=== PATIENT | female | born 2000 | race Caucasian/White ===

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

== ENCOUNTER 2018-01-12 17:54 | Emergency (ER) | payer MEDICAID ==
[2018-01-12 17:58] VITALS: BP 141/85; BMI 34.0
[2018-01-12 19:00] LABS: BILIRUBIN,URINE NEGATIVE (NEGATIVE); BLOOD/HEMOGLOBIN,URINE NEGATIVE (NEGATIVE); GLUCOSE, URINE NEGATIVE (NEGATIVE); KETONES,URINE NEGATIVE (NEGATIVE); LEUKOCYTE ESTERASE ,URINE 1+ (NEGATIVE); NITRITES,URINE NEGATIVE (NEGATIVE); PROTEIN,URINE NEGATIVE (NEGATIVE); UROBILINOGEN,URINE NORMAL (NORMAL)
[2018-01-12 19:10] LABS: APPEARANCE,URINE SLIGHTLY HAZY (CLEAR); COLOR,URINE YELLOW (YELLOW)
[2018-01-12 19:11] LABS: AMNISURE ROM TEST NO MEMBRANES RUPTURE (NO RUPTURE); BACTERIA,URINE 2+ /HPF (NEGATIVE); RBC,URINE NONE SEEN /HPF (NEGATIVE); SQUAMOUS EPITHELIAL CELL,UR NUMEROUS /HPF (NEGATIVE)
== END 2018-01-12 19:27 | disposition home or self-care (01) ==
LOC: ER 18:01
DX: O60.03 Preterm labor without delivery, third trimester (principal); Z3A.37 37 weeks gestation of pregnancy
CPT/HCPCS: 80307; 81001; 84112; 99284; G0434

== ENCOUNTER 2018-01-30 17:25 | Emergency (ER) | payer MEDICAID, OTHER ==
[2018-01-30 17:31] VITALS: BMI 37.3
[2018-01-30 18:36] VITALS: BP 138/80
[2018-01-30 18:36] LABS: URIC ACID 4.2 mg/dL (2.6-6.0)
== END 2018-01-30 18:52 | disposition home or self-care (01) ==
LOC: ER 17:36
DX: O13.3 Gestational [pregnancy-induced] hypertension without significant proteinuria, third trimester (principal); Z3A.00 Weeks of gestation of pregnancy not specified
CPT/HCPCS: 36415; 83615; 84450; 84460; 84550; 85384; 85610; 85730; 99284

== ENCOUNTER → 2018-02-03 | Outpatient (CLI) | payer OTHER ==
[2018-01-30 18:36] VITALS: BP 138/80
[2018-02-03 14:03] LABS: BASOPHILS % (AUTO) 0.4 % (0.2-1.0); EOSINOPHILS # (AUTO) 0.1 x10^3/uL (0.0-0.2); EOSINOPHILS % (AUTO) 1.2 % (0.9-2.9); HEMOGLOBIN 10.4 g/dL (12.0-16.0); LYMPHOCYTES # (AUTO) 2.5 X10^3/uL (1.3-2.9); LYMPHOCYTES % (AUTO) 21.5 % (21.0-51.0); MEAN CORPUSCULAR HEMOGLOBIN 26.5 pg (27.0-34.0); MEAN CORPUSCULAR HGB CONC 33.5 g/dL (33.0-35.0); MEAN PLATELET VOLUME 9.8 fL (7.4-11.0); MONOCYTES % (AUTO) 8.2 % (0.0-13.0); NEUTROPHILS % (AUTO) 68.7 % (42.0-75.0); PLATELET COUNT 225 X10^3/uL (150.0-450.0); RED BLOOD COUNT 3.92 X10^6/uL (3.5-5.4); RED CELL DISTRIBUTION WIDTH 14.7 % (11.6-16.5); WHITE BLOOD COUNT 11.7 X10^3/uL (3.6-10.0)
[2018-02-03 14:07] LABS: BLOOD UREA NITROGEN 8 mg/dL (7-18); CALCIUM 8.4 mg/dL (8.5-10.1); CARBON DIOXIDE 25.3 mmol/L (21-32); CHLORIDE 102 mmol/L (98-107); CREATININE 0.57 mg/dL (0.55-1.02); SODIUM 136 mmol/L (136-145); eGFR BLACK RACES > 60 (>60); eGFR NON BLACK RACES > 60 (>60)
[2018-02-03 14:10] LABS: BILIRUBIN,URINE NEGATIVE (NEGATIVE); BLOOD/HEMOGLOBIN,URINE NEGATIVE (NEGATIVE); GLUCOSE, URINE NEGATIVE (NEGATIVE); KETONES,URINE NEGATIVE (NEGATIVE); LEUKOCYTE ESTERASE ,URINE NEGATIVE (NEGATIVE); NITRITES,URINE NEGATIVE (NEGATIVE); PROTEIN,URINE NEGATIVE (NEGATIVE); UROBILINOGEN,URINE NORMAL (NORMAL)
[2018-02-03 14:27] LABS: APPEARANCE,URINE CLEAR (CLEAR); COLOR,URINE YELLOW (YELLOW); RBC,URINE NONE SEEN /HPF (NONE SEEN)
[2018-02-03 14:28] LABS: BACTERIA,URINE TRACE /HPF (NEGATIVE); SQUAMOUS EPITHELIAL CELL,UR FEW /HPF (NEGATIVE)
== END ==
LOC: EDSTATUS 09:17 → LAB 13:12
PROVIDERS: ATTEND Specialist
DX: Z01.818 Encounter for other preprocedural examination (principal); Z01.812 Encounter for preprocedural laboratory examination; Z34.83 Encounter for supervision of other normal pregnancy, third trimester
CPT/HCPCS: 36415; 80048; 81001; 85025; 85610; 85730; 86592; 86850; 86900; 86901; 87086; 87088; 87186

== ENCOUNTER 2018-02-06 06:50 | Inpatient (IN) | payer MEDICAID, OTHER ==
[~2018-02-06 06:50] MED LIST: ANCEF 1 GM IV PREMIX* 1 GM/50 ML BAG IV ONE; ANCEF VIAL 1 GM 1 GM in NS 50 ML IV + SPIKE MINIBAG* 50 ML IV PRN; D5 1/2 NS 1000 ML 1,000 ML IV SCH; LR 1000 ML IV 1,000 ML IV ONE
[2018-02-06] MEDS ORDERED: LR 1000 ML IV 1,000 ML IV ONE (07:35)
[2018-02-06] MEDS ORDERED: DURAMORPH ONE (07:36)
[2018-02-06] MEDS ORDERED: D5 1/2 NS 1L W PITOCIN 20 UNITS/L 20 UNITS/1,000 ML BAG IV ONE (08:08)
[2018-02-06] MEDS ORDERED: NS IRRIGATION 1000 ML 1,000 ML IR ONE (08:09)
[2018-02-06 08:11] LABS: BILIRUBIN,URINE NEGATIVE (NEGATIVE); BLOOD/HEMOGLOBIN,URINE NEGATIVE (NEGATIVE); GLUCOSE, URINE NEGATIVE (NEGATIVE); KETONES,URINE NEGATIVE (NEGATIVE); LEUKOCYTE ESTERASE ,URINE 1+ (NEGATIVE); NITRITES,URINE NEGATIVE (NEGATIVE); PH,URINE 6.5 (5.0 - 8.0); PROTEIN,URINE 1+ (NEGATIVE); UROBILINOGEN,URINE NORMAL (NORMAL)
[2018-02-06 08:20] LABS: APPEARANCE,URINE CLEAR (CLEAR); BACTERIA,URINE TRACE /HPF (NEGATIVE); COLOR,URINE YELLOW (YELLOW); SQUAMOUS EPITHELIAL CELL,UR MANY /HPF (NEGATIVE)
[2018-02-06] MEDS ORDERED: BENADRYL INJ 50 MG VIAL IVP PRN ×2 (08:56→09:12)
[2018-02-06] MEDS ORDERED: PHENERGAN INJ 25 MG IVP PRN (08:56)
[2018-02-06] MEDS ORDERED: REGLAN INJ 10 MG VIAL IVP PRN ×2 (08:56→09:12)
[2018-02-06] MEDS ORDERED: ZOFRAN INJ 4 MG VIAL IVP PRN ×2 (08:56→09:12)
[2018-02-06] MEDS ORDERED: AMBIEN PO PRN (09:12)
[2018-02-06] MEDS ORDERED: XANAX PO PRN (09:12)
[2018-02-06] MEDS ORDERED: MYLICON TAB 80 MG CHEW PO PRN (09:12)
[2018-02-06] MEDS ORDERED: D5 1/2 NS 1000 ML 1,000 ML with PITOCIN 20 UNITS IV SCH ×2 (09:12)
[2018-02-06] MEDS ORDERED: ADACEL TDaP IM ONE (09:12)
[2018-02-06] MEDS ORDERED: PERCOCET TAB 5/325 MG PO PRN (09:12)
[2018-02-06] MEDS ORDERED: NARCAN INJ IVP PRN (09:12)
[2018-02-06] MEDS ORDERED: ZOFRAN INJ 4 MG VIAL ONE (09:19)
[2018-02-06] MEDS ORDERED: NEO-SYNEPHRINE INJ ONE (09:19)
[2018-02-06] MEDS ORDERED: EPHEDRINE SULFATE INJ ONE (09:19)
[2018-02-06] MEDS: PROzac PO SCH (10:05)
[2018-02-06] MEDS: PROTONIX TAB 40 MG PO SCH (10:05)
[2018-02-06] MEDS: PRENATAL PLUS PO SCH (10:05)
[2018-02-06] MEDS: FERROUS GLUCONATE PO SCH ×2 (10:06→19:08)
[2018-02-06] MEDS: TORADOL 30 MG VIAL IVP PRN ×2 (13:04→22:17)
[2018-02-07 04:38] LABS: HEMATOCRIT 23.6 % (36.0-47.0)
[2018-02-07] MEDS: FERROUS GLUCONATE PO SCH ×2 (06:04→18:00)
[2018-02-07] MEDS: PRENATAL PLUS PO SCH (08:06)
[2018-02-07] MEDS: PROTONIX TAB 40 MG PO SCH (08:10)
[2018-02-07] MEDS: PROzac PO SCH (08:10)
[2018-02-07] MEDS: PERCOCET TAB 5/325 MG PO PRN ×3 (09:06→21:40)
[2018-02-07] MEDS: COLACE CAP 100 MG PO SCH ×2 (09:06→21:12)
[2018-02-07] MEDS: BACTROBAN OINT TOP SCH ×2 (14:16→21:12)
[2018-02-08] MEDS: MOTRIN TAB 800 MG PO PRN ×2 (00:55→12:05)
[2018-02-08] MEDS: PERCOCET TAB 5/325 MG PO PRN (03:52)
[2018-02-08] MEDS: BACTROBAN OINT TOP SCH (05:52)
[2018-02-08] MEDS: FERROUS GLUCONATE PO SCH (06:05)
[2018-02-08 08:14] VITALS: BP 127/77
[2018-02-08] MEDS: COLACE CAP 100 MG PO SCH (09:01)
[2018-02-08] MEDS: PROTONIX TAB 40 MG PO SCH (09:01)
[2018-02-08] MEDS: PROzac PO SCH (09:02)
[2018-02-08] MEDS: PRENATAL PLUS PO SCH (09:02)
== END 2018-02-08 13:30 | disposition home or self-care (01) | DRG 765 ==
LOC: UNDOADMIN 06:50 → LD 06:50 → MED/SURG 09:18
PROVIDERS: ADMIT Specialist; ATTEND Specialist
PROC: 10D00Z1 Extraction of Products of Conception, Low, Open Approach (ICD-10-PCS; principal; 2018-02-06 07:30)
DX: O99.013 Anemia complicating pregnancy, third trimester (principal); D50.8 Other iron deficiency anemias; Z37.0 Single live birth; O99.613 Diseases of the digestive system complicating pregnancy, third trimester; O99.343 Other mental disorders complicating pregnancy, third trimester; N85.8 Other specified noninflammatory disorders of uterus; Z3A.39 39 weeks gestation of pregnancy; O99.89 Other specified diseases and conditions complicating pregnancy, childbirth and the puerperium; O99.323 Drug use complicating pregnancy, third trimester; O34.211 Maternal care for low transverse scar from previous cesarean delivery
CPT/HCPCS: 36415; 80048; 80307; 81001; 85014; 85018; 85025; 85610; 85730; 86592; 86850; 86900; 86901; 87086; 87088; 87186; A4222; S0197; G0434; J0690; J1885; J2370; J2405; J7120